=== PATIENT | male | born 1995 ===

== ENCOUNTER 2023-02-12 07:02 | Emergency (ER) | payer OTHER ==
[~2023-02-12] VITALS: Ht 180.3 cm; Wt 81.8 kg
[2023-02-12 07:05] VITALS: BP 148/82; PULSE 72; RESP 15; TEMP 98.9
[2023-02-12] MEDS ORDERED: CEPH-558 PO (07:41)
[2023-02-12] MEDS ORDERED: SULF-261 PO (07:41)
[2023-02-12] MEDS ORDERED: CEPHALEXIN MONOHYDRATE 500 MG CAPSULE PO ONE (07:45)
[2023-02-12] MEDS ORDERED: SULFAMETHOX/TRIMETH DS 800-160 MG/TABLET PO ONE (07:45)
== END 2023-02-12 07:53 | disposition home or self-care (01) ==
LOC: EMS 07:03
DX: L73.9 Follicular disorder, unspecified (principal); F12.90 Cannabis use, unspecified, uncomplicated; Z98.890 Other specified postprocedural states
CPT/HCPCS: 99283